=== PATIENT | male | born 1955 | race Caucasian/White ===

== ENCOUNTER 2022-06-23 14:38 | Inpatient (IN) | payer MEDICARE ==
[2022-06-23 15:37] LABS: Anisocytosis Slight; Basophils # (A) 0.1 k/uL (0-0.2); Basophils % (A) 1 %; Eosinophils # (A) 0.2 k/uL (0-0.7); Eosinophils % (A) 2 %; HCT 36.4 % (39.0-53.0); HGB 11.3 gm/dL (13.0-17.5); Hypochromasia Moderate; Lymphocytes # (A) 0.8 k/uL (1.0-4.8); Lymphocytes % (A) 7 %; MCH 33.1 pg (25.0-35.0); MCHC 31.1 g/dL (31.0-37.0); MCV 106.4 fL (80.0-100.0); Macrocytosis Moderate; Mean Platelet Volume 9.6; Monocytes # (A) 0.6 k/uL (0-1.0); Monocytes % (A) 6 %; Neutrophils # (A) 8.6 k/uL (1.3-7.7); Neutrophils % (A) 83 %; Platelet Count 181 k/uL (150-450); RBC 3.42 m/uL (4.30-5.90); WBC 10.4 k/uL (3.8-10.6)
[2022-06-23 15:50] LABS: INR 1.5 (<1.2); Partial Thromboplastin Time 23.7 sec (22.0-30.0); Prothrombin Time 15.1 sec (9.0-12.0)
[2022-06-23 15:55] LABS: Albumin 3.3 g/dL (3.5-5.0); Calcium 8.7 mg/dL (8.4-10.2); Total Bilirubin 1.3 mg/dL (0.2-1.3); Total Protein 6.9 g/dL (6.3-8.2)
[2022-06-23 15:56] LABS: Potassium 5.4 mmol/L (3.5-5.1)
--- NOTE | 2022-06-23 16:20 | XR ---
EXAMINATION TYPE: XR ribs RT DATE OF EXAM: 06/23/2022 CLINICAL HISTORY: Pain, Fall Four views of the ribs fail demonstrate evidence for displaced rib fracture or secondary sign of rib fracture. There is airspace consolidation right lung. No evidence for pneumothorax. Right-sided galls tones noted. IMPRESSION: 1. No displaced rib fractures seen. ICD 10 NO FRACTURE, INITIAL EVALUATION
--- NOTE | 2022-06-23 16:21 | XR ---
EXAMINATION TYPE: XR chest 2V DATE OF EXAM: 06/23/2022 COMPARISON: NONE HISTORY: Shortness of breath TECHNIQUE: Frontal and lateral views of the chest are obtained. FINDINGS: Scattered senescent parenchymal changes noted. Perihilar airspace disease with pulmonary venous congestion and cardiomegaly compatible with underlyi ng pulmonary edema. Correlate clinically. Mediastinal structures are stable and grossly unremarkable. No evidence for hilar prominence. Degenerative changes dorsal spine. IMPRESSION: 1. Perihilar airspace disease with pulmonary venous congestion and cardiomegaly compatible with under lying pulmonary edema. Correlate clinically.
--- NOTE | 2022-06-23 16:27 | ED ---
SOB HPI - General Chief Complaint: Shortness of Breath Stated Complaint: JOYCE Time Seen by Provider: 06/23/22 14:41 Source: patient, family, EMS, RN notes reviewed Mode of arrival: EMS Limitations: physical limitation - History of Present Illness Initial Comments: This is a 66-year-old male with a past medical history of myocardial infarction, CVA, CHF, a-fib, anemia, and hypertension, who presents to the emergency department for hypoxemia. Patient is currently at [facility] and has been there for 2 weeks recovering from a bout of cellulitis and a DVT in the right leg. Today, he had a sudden episode of oxygen desaturation around 78%. He has never been on oxygen before or had breathing problems. Patient is a daily smoker and smokes 4 cigarettes a day. When EMS brought him to the emergency department, he had been put on 4 L of oxygen via nasal cannula. He does have a [place] filter in place and takes Eliquis daily. Patient currently denying any chest pain, coughing, or upper respiratory symptoms. Denies any fevers, chills, sore throat, cough, chest pain, palpitations, abdominal pain, nausea, vomiting, diarrhea, back pain, or headaches. MD Complaint: shortness of breath Worsens With: lying flat Known History Of: congestive heart failure Treatments Prior to Arrival: oxygen - Related Data Home Oxygen Therapy: No Allergies Allergy/AdvReac Type Severity Reaction Status Date / Time lisinopril [From Zestril] Allergy Cough Verified 06/23/22 15:36 niacin Allergy Swelling Verified 06/23/22 15:38 [From Niaspan Extended-Release] Review of Systems ROS Statement: Those systems with pertinent positive or pertinent negative responses have been documented in the HPI. ROS Other: All systems not noted in ROS Statement are negative. Past Medical History Past Medical History: Heart Failure, Hyperlipidemia, Hypertension, Prostate Disorder Additional Past Medical History / Comment(s): CHF, stroke History of Any Multi-Drug Resistant Organisms: Unobtainable Additional Past Surgical History / Comment(s): Quadrupal bypass Past Psychological History: Unable to Obtain Smoking Status: Unknown if ever smoked Past Alcohol Use History: Unable to Obtain Past Drug Use History: Unable to Obtain General Exam Limitations: physical limitation General appearance: alert Head exam: Present: atraumatic, normocephalic, normal inspection Respiratory exam: Present: respiratory distress, wheezes, rhonchi, other (Large area of ecchymosis over the right chest wall with minor overlying tenderness) Cardiovascular Exam: Present: regular rate, irregular rhythm Extremities exam: Present: other (3+ pitting edema in the right lower extremity with venous stasis changes.) Neurological exam: Present: alert Psychiatric exam: Present: normal affect, normal mood Skin exam: Present: warm, dry, intact, normal color. Absent: rash Course Vital Signs 06/23/22 06/23/22 06/23/22 14:41 14:45 17:04 Temperature 97.7 F Pulse Rate 80 92 Respiratory 24 26 H 26 H Rate Blood Pressure 103/73 108/72 O2 Sat by Pulse 80 L 100 Oximetry Medical Decision Making - Medical Decision Making This is a 66-year-old male who presents to the emergency department for difficulty breathing and hypoxemia. Lab work reveals an elevated d-dimer, troponin, and lactic acid. Additionally, he has poor kidney function and elev ated liver enzymes. These findings were discussed with his family, who states that he does have chronic kidney problems and is awaiting an appointment with nephrology in August. They are not aware of any problems related to his liver, they state that he used to drink a lot of alcohol prior to his stroke 16 years ago, but has not had any regular alcohol intake since then. With the [place] filter and the patient being on Eliquis it makes it less likely for him to acquire a severe pulmonary embolus, however this cannot be ruled out. Due to his poor kidney function, a CTA will not be obtained in the emergency department. A VQ scan can be considered by the admitting team if they feel it is appropriate. Chest x-ray obtained revealing pulmonary venous congestion and cardiomegaly. I did obtain an x-ray of the ribs on the right side, as the patient has a very large area of ecchymosis with associated tenderness on palpation. This did not reveal any rib fractures, however it did identify gallstones. BNP is elevated at 30,100. The hypoxemia is most likely related to the CHF exacerbation. Patient given 40 mg of Lasix IV in the emergency department. Patient will be admitted to medicine for further management. This case was discussed in detail with the attending ED physician. Presentation, findings, and treatment plan discussed in detail as well. - Lab Data Result diagrams: 06/23/22 15:15 06/23/22 15:15 Lab Results 06/23/22 06/23/22 06/23/22 Range/Units 15:15 15:15 15:15 WBC 10.4 (3.8-10.6) k/uL RBC 3.42 L (4.30-5.90) m/uL Hgb 11.3 L (13.0-17.5) gm/dL Hct 36.4 L (39.0-53.0) % MCV 106.4 H (80.0-100.0) fL MCH 33.1 (25.0-35.0) pg MCHC 31.1 (31.0-37.0) g/dL RDW 16.0 H (11.5-15.5) % Plt Count 181 (150-450) k/uL MPV 9.6 Neutrophils % 83 % Lymphocytes % 7 % Monocytes % 6 % Eosinophils % 2 % Basophils % 1 % Neutrophils # 8.6 H (1.3-7.7) k/uL Lymphocytes # 0.8 L (1.0-4.8) k/uL Monocytes # 0.6 (0-1.0) k/uL Eosinophils # 0.2 (0-0.7) k/uL Basophils # 0.1 (0-0.2) k/uL Hypochromasia Moderate Anisocytosis Slight Macrocytosis Moderate PT 15.1 H (9.0-12.0) sec INR 1.5 H (<1.2) APTT 23.7 (22.0-30.0) sec D-Dimer 2.86 H (<0.60) mg/L FEU Sodium 139 (137-145) mmol/L Potassium 5.4 H (3.5-5.1) mmol/L Chloride 104 (98-107) mmol/L Carbon Dioxide 20 L (22-30) mmol/L Anion Gap 15 mmol/L BUN 63 H (9-20) mg/dL Creatinine 1.99 H (0.66-1.25) mg/dL Est GFR (CKD-EPI)AfAm 39 (>60 ml/min/1.73 sqM) Est GFR (CKD-EPI)NonAf 34 (>60 ml/min/1.73 sqM) Glucose 111 H (74-99) mg/dL Plasma Lactic Acid Sonido (0.7-2.0) mmol/L Calcium 8.7 (8.4-10.2) mg/dL Total Bilirubin 1.3 (0.2-1.3) mg/dL AST 256 H (17-59) U/L ALT 64 H (4-49) U/L Alkaline Phosphatase 140 H (38-126) U/L Troponin I (0.000-0.034) ng/mL NT-Pro-B Natriuret Pep pg/mL Total Protein 6.9 (6.3-8.2) g/dL Albumin 3.3 L (3.5-5.0) g/dL Coronavirus (PCR) (Not Detectd) 06/23/22 06/23/22 06/23/22 Range/Units 15:15 15:15 15:15 WBC (3.8-10.6) k/uL RBC (4.30-5.90) m/uL Hgb (13.0-17.5) gm/dL Hct (39.0-53.0) % MCV (80.0-100.0) fL MCH (25.0-35.0) pg MCHC (31.0-37.0) g/dL RDW (11.5-15.5) % Plt Count (150-450) k/uL MPV Neutrophils % % Lymphocytes % % Monocytes % % Eosinophils % % Basophils % % Neutrophils # (1.3-7.7) k/uL Lymphocytes # (1.0-4.8) k/uL Monocytes # (0-1.0) k/uL Eosinophils # (0-0.7) k/uL Basophils # (0-0.2) k/uL Hypochromasia Anisocytosis Macrocytosis PT (9.0-12.0) sec INR (<1.2) APTT (22.0-30.0) sec D-Dimer (<0.60) mg/L FEU Sodium (137-145) mmol/L Potassium (3.5-5.1) mmol/L Chloride (98-107) mmol/L Carbon Dioxide (22-30) mmol/L Anion Gap mmol/L BUN (9-20) mg/dL Creatinine (0.66-1.25) mg/dL Est GFR (CKD-EPI)AfAm (>60 ml/min/1.73 sqM) Est GFR (CKD-EPI)NonAf (>60 ml/min/1.73 sqM) Glucose (74-99) mg/dL Plasma Lactic Acid Sonido 3.0 H* (0.7-2.0) mmol/L Calcium (8.4-10.2) mg/dL Total Bilirubin (0.2-1.3) mg/dL AST (17-59) U/L ALT (4-49) U/L Alkaline Phosphatase (38-126) U/L Troponin I 0.041 H* (0.000-0.034) ng/mL NT-Pro-B Natriuret Pep 80408 pg/mL Total Protein (6.3-8.2) g/dL Albumin (3.5-5.0) g/dL Coronavirus (PCR) (Not Detectd) 06/23/22 Range/Units 15:15 WBC (3.8-10.6) k/uL RBC (4.30-5.90) m/uL Hgb (13.0-17.5) gm/dL Hct (39.0-53.0) % MCV (80.0-100.0) fL MCH (25.0-35.0) pg MCHC (31.0-37.0) g/dL RDW (11.5-15.5) % Plt Count (150-450) k/uL MPV Neutrophils % % Lymphocytes % % Monocytes % % Eosinophils % % Basophils % % Neutrophils # (1.3-7.7) k/uL Lymphocytes # (1.0-4.8) k/uL Monocytes # (0-1.0) k/uL Eosinophils # (0-0.7) k/uL Basophils # (0-0.2) k/uL Hypochromasia Anisocytosis Macrocytosis PT (9.0-12.0) sec INR (<1.2) APTT (22.0-30.0) sec D-Dimer (<0.60) mg/L FEU Sodium (137-145) mmol/L Potassium (3.5-5.1) mmol/L Chloride (98-107) mmol/L Carbon Dioxide (22-30) mmol/L Anion Gap mmol/L BUN (9-20) mg/dL Creatinine (0.66-1.25) mg/dL Est GFR (CKD-EPI)AfAm (>60 ml/min/1.73 sqM) Est GFR (CKD-EPI)NonAf (>60 ml/min/1.73 sqM) Glucose (74-99) mg/dL Plasma Lactic Acid Sonido (0.7-2.0) mmol/L Calcium (8.4-10.2) mg/dL Total Bilirubin (0.2-1.3) mg/dL AST (17-59) U/L ALT (4-49) U/L Alkaline Phosphatase (38-126) U/L Troponin I (0.000-0.034) ng/mL NT-Pro-B Natriuret Pep pg/mL Total Protein (6.3-8.2) g/dL Albumin (3.5-5.0) g/dL Coronavirus (PCR) Not Detected (Not Detectd) - Radiology Data Radiology results: report reviewed, image reviewed Disposition Clinical Impression: Acute exacerbation of CHF (congestive heart failure), Hypoxemia Disposition: ADMITTED IP TO THIS [facility] Referrals: William Cleveland DO [Primary Care Provider] - 1-2 days
[2022-06-23] MEDS ORDERED: FUROSEMIDE 10 MG/ML 4 ML VIAL IV STA (16:41)
[2022-06-23] MEDS ORDERED: NALOXONE 0.4 MG/ML 1 ML VIAL IV PRN (17:00)
[2022-06-23] MEDS ORDERED: ONDANSETRON 4 MG/2 ML VIAL IVP PRN (17:00)
--- NOTE | 2022-06-23 18:48 | P.HPIM ---
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 Patient is aphasic and currently lethargic so history was taken from the at bedside. states that 3 days ago his breathing has been worsening and today his pulse ox was down to the 70s. states that patient was recently admitted to [facility] and was treated for cellulitis. She states that he has completed his antibiotic course for cellulitis at the custodial facility. states that she has talked to her kids about hospice. She states that her children did not like the idea of turning off the defibrillator if he goes into hospice. In the ED patient was 80% on room air. Patient placed on 3 L nasal cannula and is now satting well. Patient was found to have potassium 5.4, creatinine 1.99, lactic acid 3.0, troponin 0.041, BNP greater than 30,000 and elevated LFTs. Chest x-ray showed cardiomegaly and vascular congestion. Patient is unable to answer yes and no questions. He is denying any chest pain or abdominal pain or fever or chills. at bedside states that his cellulitis is much better. Review of Systems 10 ROS reviewed and are negative except as noted in HPI Past Medical History Past Medical History: Heart Failure, Hyperlipidemia, Hypertension, Prostate Disorder Additional Past Medical History / Comment(s): CHF, stroke History of Any Multi-Drug Resistant Organisms: Unobtainable Additional Past Surgical History / Comment(s): Quadrupal bypass Past Psychological History: Unable to Obtain Smoking Status: Unknown if ever smoked Past Alcohol Use History: Unable to Obtain Past Drug Use History: Unable to Obtain Medications and Allergies Home Medications Medication Instructions Recorded Confirmed Type Acetaminophen Tab [Tylenol] 650 mg PO Q6H PRN 06/23/22 06/23/22 History Apixaban [Eliquis] 2.5 mg PO BID 06/23/22 06/23/22 History Aspirin EC [Ecotrin Low Dose] 81 mg PO DAILY 06/23/22 06/23/22 History Balsalazide Disodium 750 mg PO TID@0700,1300,1900 06/23/22 06/23/22 History Furosemide [Lasix] 40 mg PO DAILY 06/23/22 06/23/22 History Mexiletine [Mexitil] 200 mg PO TID@0700,1300,1900 06/23/22 06/23/22 History Potassium Chloride ER [K-Dur 20] 20 meq PO DAILY 06/23/22 06/23/22 History Tamsulosin [Flomax] 0.4 mg PO DAILY 06/23/22 06/23/22 History allopurinoL [Zyloprim] 100 mg PO DAILY 06/23/22 06/23/22 History carvediloL [Coreg] 6.25 mg PO BID 06/23/22 06/23/22 History traMADol HCL 50 mg PO BID@0700,1900 06/23/22 06/23/22 History traZODone HCL [Desyrel] 50 mg PO HS 06/23/22 06/23/22 History Allergies Allergy/AdvReac Type Severity Reaction Status Date / Time lisinopril [From Zestril] Allergy Cough Verified 06/23/22 17:29 niacin Allergy Swelling Verified 06/23/22 17:29 [From Niaspan Extended-Release] Physical Exam Osteopathic Statement: *. No significant issues noted on an osteopathic structural exam other than those noted in the History and Physical/Consult. Vitals: Vital Signs Temp Pulse Resp BP Pulse Ox 06/23/22 17:04 92 26 H 108/72 100 06/23/22 14:45 26 H 06/23/22 14:41 97.7 F 80 24 103/73 80 L Intake and Output 06/23/22 06/23/22 06/23/22 06:59 14:59 22:59 Other: Weight 111.13 kg General: [Appears chronically debilitated, mild respiratory distress]. Eye: [PERRL, EOMI, normal conjunctiva]. HENT: [Normocephalic, clear tympanic membranes, normal hearing, dry oral mucosa, no scleral icterus, no sinus tenderness]. Neck: [Supple, non-tender, no carotid bruits, no JVD, no lymphadenopathy]. Lungs: [Crackles in bilateral lower lungs]. Heart: [Normal rate, regular rhythm, +2 pitting edema bilateral lower extre mities]. Abdomen: [Soft, non-tender, non-distended, normal bowel sounds, no masses]. Musculoskeletal: [Normal range of motion and strength, no tenderness or swelling]. Neurologic: [Right-sided weakness, CN II-XII intact]. Psychiatric: [Lethargic and drowsy]. Results CBC & Chem 7: 06/23/22 15:15 06/23/22 15:15 Labs: Abnormal Lab Results - Last 24 Hours (Table) 06/23/22 06/23/22 06/23/22 Range/Units 15:15 15:15 15:15 RBC 3.42 L (4.30-5.90) m/uL Hgb 11.3 L (13.0-17.5) gm/dL Hct 36.4 L (39.0-53.0) % MCV 106.4 H (80.0-100.0) fL RDW 16.0 H (11.5-15.5) % Neutrophils # 8.6 H (1.3-7.7) k/uL Lymphocytes # 0.8 L (1.0-4.8) k/uL PT 15.1 H (9.0-12.0) sec INR 1.5 H (<1.2) D-Dimer 2.86 H (<0.60) mg/L FEU Potassium 5.4 H (3.5-5.1) mmol/L Carbon Dioxide 20 L (22-30) mmol/L BUN 63 H (9-20) mg/dL Creatinine 1.99 H (0.66-1.25) mg/dL Glucose 111 H (74-99) mg/dL Plasma Lactic Acid Sonido (0.7-2.0) mmol/L AST 256 H (17-59) U/L ALT 64 H (4-49) U/L Alkaline Phosphatase 140 H (38-126) U/L Troponin I (0.000-0.034) ng/mL Albumin 3.3 L (3.5-5.0) g/dL 06/23/22 06/23/22 Range/Units 15:15 15:15 RBC (4.30-5.90) m/uL Hgb (13.0-17.5) gm/dL Hct (39.0-53.0) % MCV (80.0-100.0) fL RDW (11.5-15.5) % Neutrophils # (1.3-7.7) k/uL Lymphocytes # (1.0-4.8) k/uL PT (9.0-12.0) sec INR (<1.2) D-Dimer (<0.60) mg/L FEU Potassium (3.5-5.1) mmol/L Carbon Dioxide (22-30) mmol/L BUN (9-20) mg/dL Creatinine (0.66-1.25) mg/dL Glucose (74-99) mg/dL Plasma Lactic Acid Sonido 3.0 H* (0.7-2.0) mmol/L AST (17-59) U/L ALT (4-49) U/L Alkaline Phosphatase (38-126) U/L Troponin I 0.041 H* (0.000-0.034) ng/mL Albumin (3.5-5.0) g/dL Assessment and Plan Assessment: Acute on chronic systolic heart failure status post ICD Acute hypoxic respiratory failure We will start the patient on IV Lasix 40 mg twice a day Consult cardiology and nephrology Check echocardiogram Per patient's primary doormaker discontinued Entrusto likely due to renal failure Resume Coreg Daily weights and strict I's and O's Wean O2 as tolerated Acute kidney injury likely on CK D Unknown creatinine baseline Consult nephrology Monitor creatinine closely while on IV diuretics Mild hyperkalemia likely due to renal failure Continue with diuretics Elevated lactic acid likely due to hypoxia Patient has no fever or leukocytosis so unlikely due to sepsis Elevated troponin secondary to renal failure and heart failure Patient denies any chest pains unlikely ACS Trend troponins Elevated LFTs likely due to hepatic congestion Continue to trend CBC Check right upper quadrant ultrasound X-ray did show gallstone however patient denies any abdominal pain Recurrent DVT with IVC filter Elevated d-dimer likely due to recent DVT Resume Eliquis A. fib with RVR Resume Eliquis and mexiletine BPH Resume tamsulosin Hyperlipidemia Resume statin Coronary artery disease status post CABG Resume aspirin and statin History of gout Resume allopurinol History of multiple strokes Resume aspirin and statin DNR/DNI DVT prophylaxis: eliquis
[2022-06-23] MEDS: carvediloL 6.25 MG TAB PO SCH (18:57)
[2022-06-23 19:32] LABS: Appearance,Urine Clear (Clear); Bilirubin,Urine Negative (Negative); Blood,Urine Negative (Negative); Color,Urine Yellow; Glucose,Urine (UA) Negative (Negative); Ketones,Urine Negative (Negative); Leukocyte Esterase,Urine Negative (Negative); Nitrite,Urine Negative (Negative); Protein,Urine Negative (Negative); Specific Gravity,Urine 1.014 (1.001-1.035); Urobilinogen,Urine <2.0 mg/dL (<2.0)
[2022-06-23] MEDS: ATORVASTATIN 40 MG TAB PO SCH (20:38)
[2022-06-23] MEDS: BALSALAZIDE DISODIUM 750 MG CAPSULE PO SCH (20:38)
[2022-06-23] MEDS: MEXILETINE 200 MG CAP PO SCH (20:38)
[2022-06-23] MEDS: APIXABAN 5 MG TAB PO SCH (20:38)
[2022-06-23] MEDS ORDERED: MORPHINE SULFATE 2 MG/ML SYRINGE IVP STA (23:14)
[2022-06-24] MEDS ORDERED: FUROSEMIDE 10 MG/ML 2 ML VIAL IV SCH (06:00)
[2022-06-24] MEDS: MEXILETINE 200 MG CAP PO SCH ×3 (06:26→17:27)
[2022-06-24] MEDS: carvediloL 6.25 MG TAB PO SCH ×2 (06:26→16:28)
[2022-06-24] MEDS: BALSALAZIDE DISODIUM 750 MG CAPSULE PO SCH ×3 (06:26→17:27)
[2022-06-24] MEDS: APIXABAN 5 MG TAB PO SCH ×2 (08:46→20:45)
[2022-06-24] MEDS: allopurinoL 100 MG TAB PO SCH (08:46)
[2022-06-24] MEDS: ASPIRIN 81 MG PO SCH (08:46)
[2022-06-24] MEDS: TAMSULOSIN 0.4 MG CAP.ER.24H PO SCH (08:46)
--- NOTE | 2022-06-24 10:11 | US ---
EXAMINATION TYPE: US abdomen limited DATE OF EXAM: 06/24/2022 COMPARISON: NONE CLINICAL HISTORY: elevated LFTs. TECHNIQUE: Multiple sonographic images of the right upper quadrant are obtained. 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 Technically difficult with very limited visuali zation of organs, difficult to get images without motion. Pancreas: Obscured by bowel gas, hypoechoic area inferior, not peristalsing of ?etiology Liver: very limited visualization, no obvious mass, but due to limitations evaluation is minimal Gallbladder: cholelithiasis, minimal visualization Evidence for sonographic Bo's sign: No CBD: not seen Right Kidney: not seen IMPRESSION: 1. Limited examination. 2. Cholelithiasis. 3. Probable bowel adjacent to the pancreas.
--- NOTE | 2022-06-24 10:48 | P.NPCON ---
History of Present Illness - Reason for Consult acute renal failure - History of Present Illness Reason for admission: Acute kidney injury History of present illness: Patient is a 66-year-old male seen in renal consultation for acute kidney injury. Patient's creatinine on admission yesterday was 1.99. Unknown baseline renal function. Patient's is present at bedside. She states the patient was recently admitted for blood clot in his lower extremities at [facility] and then went to rehab to sleep. He has been at the rehab facility for about 2 weeks now. Last few days patient has been getting progressively more short of breath and was hypoxic. According to his , his oxygen saturation was in the 70s. He was subsequently sent to the hospital. Chest x-ray suggestive of fluid overload. He is currently receiving IV Lasix. He has an external catheter. No history of diabetes. Oral intake has been poor the last few days. Blood pressure has been in the systolic 90s to 100s. Afebrile. Patient is resting in bed and is quite lethargic. He is not answering verbal questions at this time. Vital signs are stable. General: Resting in bed. HEENT: Head exam is unremarkable. On nasal cannula. LUNGS: Breath sounds decreased. HEART: Rate and Rhythm are regular. ABDOMEN: Soft, no distention. EXTREMITITES: 1+ edema. Past Medical History Past Medical History: Heart Failure, Hyperlipidemia, Hypertension, Liver Disease, Prostate Disorder, Renal Disease Additional Past Medical History / Comment(s): CHF, stroke History of Any Multi-Drug Resistant Organisms: None Reported Additional Past Surgical History / Comment(s): Quadrupal bypass Past Anesthesia/Blood Transfusion Reactions: No Reported Reaction Past Psychological History: Unable to Obtain Smoking Status: Unknown if ever smoked Past Alcohol Use History: Unable to Obtain Past Drug Use History: Unable to Obtain Medications and Allergies Home Medications Medication Instructions Recorded Confirmed Type Acetaminophen Tab [Tylenol] 650 mg PO Q6H PRN 06/23/22 06/23/22 History Apixaban [Eliquis] 2.5 mg PO BID 06/23/22 06/23/22 History Aspirin EC [Ecotrin Low Dose] 81 mg PO DAILY 06/23/22 06/23/22 History Balsalazide Disodium 750 mg PO TID@0700,1300,1900 06/23/22 06/23/22 History Furosemide [Lasix] 40 mg PO DAILY 06/23/22 06/23/22 History Mexiletine [Mexitil] 200 mg PO TID@0700,1300,1900 06/23/22 06/23/22 History Potassium Chloride ER [K-Dur 20] 20 meq PO DAILY 06/23/22 06/23/22 History Tamsulosin [Flomax] 0.4 mg PO DAILY 06/23/22 06/23/22 History allopurinoL [Zyloprim] 100 mg PO DAILY 06/23/22 06/23/22 History carvediloL [Coreg] 6.25 mg PO BID 06/23/22 06/23/22 History traMADol HCL 50 mg PO BID@0700,1900 06/23/22 06/23/22 History traZODone HCL [Desyrel] 50 mg PO HS 06/23/22 06/23/22 History Allergies Allergy/AdvReac Type Severity Reaction Status Date / Time lisinopril [From Zestril] Allergy Cough Verified 06/23/22 17:29 niacin Allergy Swelling Verified 06/23/22 17:29 [From Niaspan Extended-Release] Physical Exam Vitals: Vital Signs Temp Pulse Pulse Resp BP BP Pulse Ox 06/24/22 08:23 95 06/24/22 08:00 111 H 18 109/67 96 06/24/22 04:00 95 22 107/43 95 06/23/22 23:38 98.0 F 85 21 92/66 100 06/23/22 20:33 98.1 F 98 19 109/67 99 06/23/22 19:43 97.2 F L 93 24 116/78 99 06/23/22 17:04 92 26 H 108/72 100 06/23/22 14:45 26 H 06/23/22 14:41 97.7 F 80 24 103/73 80 L Intake and Output 06/23/22 06/24/22 06/24/22 22:59 06:59 14:59 Other: Voiding Method External Catheter External Catheter # Voids 1 # Bowel Movements 1 Weight 111.13 kg 108.5 kg Results - Lab Results Most recent lab results Calcium 8.7 mg/dL (8.4-10.2) 06/23/22 15:15 06/23/22 15:15 06/23/22 15:15 Assessment and Plan Plan: Assessment: 1. Acute kidney injury secondary to ATN secondary to cardiorenal syndrome. Creatinine 1.99 on admission. Rule out retention and obstructive uropathy. Unknown baseline renal function. UA benign. 2. Volume overload. 3. CHF. Unknown ejection fraction. 4. Metabolic acidosis secondary to acute kidney injury. 5. Acute hypoxic respiratory failure. Plan: Increase Lasix to 40 mg IV twice daily. Check renal ultrasound. Check bladder scan to rule out urinary retention. Strict I's and O's. Avoid nephrotoxins. Follow-up echocardiogram. Continue to monitor renal function and urine output. Thank you for the consultation. I will continue to follow the patient with you during his hospital stay.
--- NOTE | 2022-06-24 12:46 | P.PN ---
Subjective Progress Note Date: 06/24/22 Patient's is in the room. This morning patient's breathing is about the same as yesterday. His urine output has not been recorded. However patient did loose 2 kg since admission. I discussed the case with the joy loading machine operator. Patient's Lasix was increased to 40 mg twice a day Objective - Vital Signs Vital signs: Vital Signs Temp 98.0 F 06/23/22 23:38 Pulse 111 H 06/24/22 08:00 Resp 18 06/24/22 08:00 BP 109/67 06/24/22 08:00 Pulse Ox 95 06/24/22 08:23 FiO2 Intake & Output 06/23/22 06/24/22 06/24/22 18:59 06:59 18:59 Weight 111.13 kg 108.5 kg Other: Voiding Method External Catheter External Catheter # Voids 1 # Bowel Movements 1 - Exam General examination - Alert and Oriented 3 in [id number] respiratory distress Heart - + S1S2 no murmurs Lungs - bilateral lower lung crackles Abdomen soft NT ND +ve BS Extremities - +2 pitting edema bilateral lower extremities 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 - residual right-sided weakness, and aphasia Psych - appears lethargic and somnolent - Labs CBC & Chem 7: 06/23/22 15:15 06/23/22 15:15 Labs: Abnormal Lab Results - Last 24 Hours (Table) 06/23/22 06/23/22 06/23/22 Range/Units 15:15 15:15 15:15 RBC 3.42 L (4.30-5.90) m/uL Hgb 11.3 L (13.0-17.5) gm/dL Hct 36.4 L (39.0-53.0) % MCV 106.4 H (80.0-100.0) fL RDW 16.0 H (11.5-15.5) % Neutrophils # 8.6 H (1.3-7.7) k/uL Lymphocytes # 0.8 L (1.0-4.8) k/uL PT 15.1 H (9.0-12.0) sec INR 1.5 H (<1.2) D-Dimer 2.86 H (<0.60) mg/L FEU Potassium 5.4 H (3.5-5.1) mmol/L Carbon Dioxide 20 L (22-30) mmol/L BUN 63 H (9-20) mg/dL Creatinine 1.99 H (0.66-1.25) mg/dL Glucose 111 H (74-99) mg/dL Plasma Lactic Acid Sonido (0.7-2.0) mmol/L AST 256 H (17-59) U/L ALT 64 H (4-49) U/L Alkaline Phosphatase 140 H (38-126) U/L Troponin I (0.000-0.034) ng/mL Albumin 3.3 L (3.5-5.0) g/dL 06/23/22 06/23/22 06/23/22 Range/Units 15:15 15:15 18:35 RBC (4.30-5.90) m/uL Hgb (13.0-17.5) gm/dL Hct (39.0-53.0) % MCV (80.0-100.0) fL RDW (11.5-15.5) % Neutrophils # (1.3-7.7) k/uL Lymphocytes # (1.0-4.8) k/uL PT (9.0-12.0) sec INR (<1.2) D-Dimer (<0.60) mg/L FEU Potassium (3.5-5.1) mmol/L Carbon Dioxide (22-30) mmol/L BUN (9-20) mg/dL Creatinine (0.66-1.25) mg/dL Glucose (74-99) mg/dL Plasma Lactic Acid Sonido 3.0 H* (0.7-2.0) mmol/L AST (17-59) U/L ALT (4-49) U/L Alkaline Phosphatase (38-126) U/L Troponin I 0.041 H* 0.039 H* (0.000-0.034) ng/mL Albumin (3.5-5.0) g/dL 06/23/22 Range/Units 21:39 RBC (4.30-5.90) m/uL Hgb (13.0-17.5) gm/dL Hct (39.0-53.0) % MCV (80.0-100.0) fL RDW (11.5-15.5) % Neutrophils # (1.3-7.7) k/uL Lymphocytes # (1.0-4.8) k/uL PT (9.0-12.0) sec INR (<1.2) D-Dimer (<0.60) mg/L FEU Potassium (3.5-5.1) mmol/L Carbon Dioxide (22-30) mmol/L BUN (9-20) mg/dL Creatinine (0.66-1.25) mg/dL Glucose (74-99) mg/dL Plasma Lactic Acid Sonido (0.7-2.0) mmol/L AST (17-59) U/L ALT (4-49) U/L Alkaline Phosphatase (38-126) U/L Troponin I 0.035 H* (0.000-0.034) ng/mL Albumin (3.5-5.0) g/dL Assessment and Plan Assessment: Acute on chronic systolic heart failure status post ICD Acute hypoxic respiratory failure IV Lasix increased to 40 mg twice a day Consult cardiology and nephrology Patient had a recent echocardiogram done on May 2022 at [facility] that showed an EF of 40% Check echocardiogram on this admission Per patient's primary facilities engineer discontinued Entrusto likely due to renal failure Resume Coreg Daily weights and strict I's and O's Wean O2 as tolerated Acute kidney injury likely on CK D I reviewed records from [facility]. Patient is an creatinine is around 2.0. On admission he was at his baseline Nephrology on board Monitor creatinine closely while on IV diuretics A.m. labs pending Mild hyperkalemia likely due to renal failure Continue with diuretics A.m. labs pending Elevated lactic acid likely due to hypoxia Patient has no fever or leukocytosis so unlikely due to sepsis Elevated troponin secondary to renal failure and heart failure Patient denies any chest pains unlikely ACS Trend troponins Elevated LFTs likely due to hepatic congestion Continue to trend CBC Check right upper quadrant ultrasound X-ray did show gallstone however patient denies any abdominal pain Recurrent DVT with IVC filter Elevated d-dimer likely due to recent DVT Resume Eliquis A. fib with RVR Resume Eliquis and mexiletine BPH Resume tamsulosin Hyperlipidemia Resume statin Coronary artery disease status post CABG Resume aspirin and statin History of gout Resume allopurinol History of multiple strokes Resume aspirin and statin DNR/DNI DVT prophylaxis: lawrence
--- NOTE | 2022-06-24 13:11 | P.CRDCN ---
History of Present Illness Consult date: 06/24/22 History of present illness: History of Present Illness: The patient is a 66-year-old male, status post CABG in 1997, chronic persistent atrial fibrillation, post ICD implantation, prior history of stroke, aphasic who was recently discharged from the hospital with cellulitis and DVT. He presents with symptoms of dyspnea, hypoxemia. The patient is aphasic. The history is obtained from the . The patient has prior myocardial infarction and CABG, followed at [facility]. He has a history of atrial fibrillation in addition to permanent pacemaker implantation and ICD. According to the he had no further ischemic event but he has a prior history of CHF. He is very limited in his physical activity. He had recent peripheral edema but according to the better now. He has no clear PND nor orthopnea. There is no recent history of acute coronary syndrome. Evaluation of his systolic function in the past is not available. Medications: Mexiletine 200 mg 3 times a day, Lasix 40 mg daily, Coreg 6.5 mg twice a day, aspirin once a day, Eliquis 2.5 mg twice a day Review of Systems: Obtained from the Respiratory: Has a history of dyspnea on exertion GI: No nausea or vomiting . No history of peptic ulcer disease. No recent GI bleed. : No hematuria or dysuria. Nervous System: Prior 2 strokes, seizure. Physical Examination: 66-year-old male, alert a phasic with right-sided weakness ,Blood pressure 109/60, Heart rate 90 Head: Normocephalic. Eyes: Sclerae nonicteric. Neck: Good carotid upstroke, no bruit, no jugular venous distention. Lungs: Clear to auscultation. Heart: Irregular rate and rhythm, S1-S2, no S3, no rub. Systolic ejection murm ur. Abdomen: Soft nontender, positive bowel sounds no organomegaly. Extremities: +1 edema, intact distal pulses. Labs: Hemoglobin 11.3, potassium 5.4, BUN 63, creatinine 1.99. Troponin 0.04, 0.03, 0.03. NT proBNP 30,100. Chest x-ray was pulmonary congestion EKG: Atrial fibrillation with nonspecific ST-T wave changes Impression: 1. Exacerbation of CHF with history of systolic heart failure 2. Prior history of stroke and aphasia 3. Atrial fibrillation 4. Chronic kidney disease 5. History of hypertension 6. Prior history of cellulitis Plan: 1. Obtain an echocardiogram with Doppler 2. Follow renal functions 3. IV diuresis for 24 hours 4. 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 Depending on his progress further recommendations will be made. Thank you for this consult we will follow with you. Past Medical History Past Medical History: Heart Failure, Hyperlipidemia, Hypertension, Liver Disease, Prostate Disorder, Renal Disease Additional Past Medical History / Comment(s): CHF, stroke History of Any Multi-Drug Resistant Organisms: None Reported Additional Past Surgical History / Comment(s): Quadrupal bypass Past Anesthesia/Blood Transfusion Reactions: No Reported Reaction Past Psychological History: Unable to Obtain Smoking Status: Unknown if ever smoked Past Alcohol Use History: Unable to Obtain Past Drug Use History: Unable to Obtain Medications and Allergies Home Medications Medication Instructions Recorded Confirmed Type Acetaminophen Tab [Tylenol] 650 mg PO Q6H PRN 06/23/22 06/23/22 History Apixaban [Eliquis] 2.5 mg PO BID 06/23/22 06/23/22 History Aspirin EC [Ecotrin Low Dose] 81 mg PO DAILY 06/23/22 06/23/22 History Balsalazide Disodium 750 mg PO TID@0700,1300,1900 06/23/22 06/23/22 History Furosemide [Lasix] 40 mg PO DAILY 06/23/22 06/23/22 History Mexiletine [Mexitil] 200 mg PO TID@0700,1300,1900 06/23/22 06/23/22 History Potassium Chloride ER [K-Dur 20] 20 meq PO DAILY 06/23/22 06/23/22 History Tamsulosin [Flomax] 0.4 mg PO DAILY 06/23/22 06/23/22 History allopurinoL [Zyloprim] 100 mg PO DAILY 06/23/22 06/23/22 History carvediloL [Coreg] 6.25 mg PO BID 06/23/22 06/23/22 History traMADol HCL 50 mg PO BID@0700,1900 06/23/22 06/23/22 History traZODone HCL [Desyrel] 50 mg PO HS 06/23/22 06/23/22 History Allergies Allergy/AdvReac Type Severity Reaction Status Date / Time lisinopril [From Zestril] Allergy Cough Verified 06/23/22 17:29 niacin Allergy Swelling Verified 06/23/22 17:29 [From Niaspan Extended-Release] Physical Exam Vitals: Vital Signs Temp Pulse Pulse Resp BP BP Pulse Ox 06/24/22 08:23 95 06/24/22 08:00 111 H 18 109/67 96 06/24/22 04:00 95 22 107/43 95 06/23/22 23:38 98.0 F 85 21 92/66 100 06/23/22 20:33 98.1 F 98 19 109/67 99 06/23/22 19:43 97.2 F L 93 24 116/78 99 06/23/22 17:04 92 26 H 108/72 100 06/23/22 14:45 26 H 06/23/22 14:41 97.7 F 80 24 103/73 80 L Intake and Output 06/23/22 06/24/22 06/24/22 22:59 06:59 14:59 Other: Voiding Method External Catheter External Catheter External Catheter # Voids 1 # Bowel Movements 1 Weight 111.13 kg 108.5 kg Results 06/23/22 15:15 06/23/22 15:15 Cardiac Enzymes 06/23/22 06/23/22 06/23/22 Range/Units 15:15 15:15 18:35 AST 256 H (17-59) U/L Troponin I 0.041 H* 0.039 H* (0.000-0.034) ng/mL 06/23/22 Range/Units 21:39 AST (17-59) U/L Troponin I 0.035 H* (0.000-0.034) ng/mL Coagulation 06/23/22 Range/Units 15:15 PT 15.1 H (9.0-12.0) sec APTT 23.7 (22.0-30.0) sec CBC 06/23/22 Range/Units 15:15 WBC 10.4 (3.8-10.6) k/uL RBC 3.42 L (4.30-5.90) m/uL Hgb 11.3 L (13.0-17.5) gm/dL Hct 36.4 L (39.0-53.0) % Plt Count 181 (150-450) k/uL Comprehensive Metabolic Panel 06/23/22 Range/Units 15:15 Sodium 139 (137-145) mmol/L Potassium 5.4 H (3.5-5.1) mmol/L Chloride 104 (98-107) mmol/L Carbon Dioxide 20 L (22-30) mmol/L BUN 63 H (9-20) mg/dL Creatinine 1.99 H (0.66-1.25) mg/dL Glucose 111 H (74-99) mg/dL Calcium 8.7 (8.4-10.2) mg/dL AST 256 H (17-59) U/L ALT 64 H (4-49) U/L Alkaline Phosphatase 140 H (38-126) U/L Total Protein 6.9 (6.3-8.2) g/dL Albumin 3.3 L (3.5-5.0) g/dL Current Medications Generic Name Dose Route Start Last Admin Trade Name Freq PRN Reason Stop Dose Admin Allopurinol 100 mg 06/24/22 09:00 06/24/22 08:46 Allopurinol 100 Mg Tab PO 100 mg DAILY EVANS Administration Apixaban 5 mg 06/23/22 21:00 06/24/22 08:46 Apixaban 5 Mg Tab PO 5 mg BID EVANS Administration Protocol Aspirin 81 mg 06/24/22 09:00 06/24/22 08:46 Aspirin 81 Mg PO 81 mg DAILY EVANS Administration Atorvastatin Calcium 40 mg 06/23/22 21:00 06/23/22 20:38 Atorvastatin 40 Mg Tab PO 40 mg HS EVANS Administration Balsalazide 750 mg 06/23/22 19:00 06/24/22 06:26 Balsalazide Disodium 750 Mg Capsule PO 750 mg TID@0700,1300,1900 EVANS Administration Carvedilol 6.25 mg 06/23/22 19:00 06/24/22 06:26 Carvedilol 6.25 Mg Tab PO 6.25 mg BID-W/MEALS EVANS Administration Furosemide 40 mg 06/24/22 18:00 Furosemide 10 Mg/Ml 4 Ml Vial IV Q12H [facility] Mexiletine HCl 200 mg 06/23/22 19:00 06/24/22 06:26 Mexiletine 200 Mg Cap PO 200 mg TID@0700,1300,1900 EVANS Administration Naloxone HCl 0.2 mg 06/23/22 17:00 Naloxone 0.4 Mg/Ml 1 Ml Vial IV Q2M PRN Opioid Reversal Ondansetron HCl 4 mg 06/23/22 17:00 Ondansetron 4 Mg/2 Ml Vial IVP Q8HR PRN Nausea And Vomiting Tamsulosin HCl 0.4 mg 06/24/22 09:00 06/24/22 08:46 Tamsulosin 0.4 Mg Cap.Er.24h PO 0.4 mg DAILY EVANS Administration Intake and Output 06/23/22 06/24/22 06/24/22 22:59 06:59 14:59 Other: Voiding Method External Catheter External Catheter External Catheter # Voids 1 # Bowel Movements 1 Weight 111.13 kg 108.5 kg 06/23/22 15:15 06/23/22 15:15
--- NOTE | 2022-06-24 13:49 | US ---
EXAMINATION TYPE: US kidneys/renal and bladder DATE OF EXAM: 06/24/2022 COMPARISON: NONE CLINICAL HISTORY: [email or web address]. EXAM MEASUREMENTS: Right Kidney: 11.1 X 5.2 X 4.8 cm Left Kidney: 10.3 X 5.0 X 4.7 cm Technically difficult, limited study due to patient positions and extreme SOB. Right Kidney:Limited visualization worse on than contralateral side, inferior pole obscured by bowel gas Left Kidney: Limited visualization, 2 cysts largest measuring 1.8 x 1.7 x 2.4cm Bladder: wnl There is no evidence for hydronephrosis at this point in time. No nephrolithiasis is seen. The ur inary bladder is anechoic. Bilateral ureteral jets are seen. IMPRESSION: Limited study. Renal cortical cysts noted.
[2022-06-24 14:10] VITALS: BMI 32.4
--- NOTE | 2022-06-24 14:35 | XR ---
EXAMINATION TYPE: XR chest 1V DATE OF EXAM: 06/24/2022 COMPARISON: Yesterday HISTORY: Short of breath TECHNIQUE: FINDINGS: Heart is enlarged. There is pulmonary interstitial and airspace edema. There is left axilla ry pacemaker. There are chest leads. There are sternal wires. Costophrenic angles are fairly clear. IMPRESSION: There is pulmonary edema consistent with congestive heart failure which is not significan tly different than yesterday.
[2022-06-24 14:54] LABS: Albumin 3.2 g/dL (3.5-5.0); Calcium 8.9 mg/dL (8.4-10.2); Magnesium 2.4 mg/dL (1.6-2.3); Potassium 5.4 mmol/L (3.5-5.1); Total Bilirubin 1.7 mg/dL (0.2-1.3); Total Protein 6.6 g/dL (6.3-8.2)
[2022-06-24 15:07] LABS: Anisocytosis Slight; Basophils % (A) 0 %; Eosinophils % (A) 0 %; HCT 33.9 % (39.0-53.0); Hypochromasia Moderate; Lymphocytes # (A) 0.7 k/uL (1.0-4.8); Lymphocytes % (A) 7 %; MCH 33.8 pg (25.0-35.0); MCHC 32.3 g/dL (31.0-37.0); MCV 104.7 fL (80.0-100.0); Macrocytosis Moderate; Mean Platelet Volume 10.1; Monocytes # (A) 0.6 k/uL (0-1.0); Monocytes % (A) 6 %; Neutrophils # (A) 8.5 k/uL (1.3-7.7); Neutrophils % (A) 85 %; Platelet Count 188 k/uL (150-450); Poikilocytosis Slight; RBC 3.24 m/uL (4.30-5.90); WBC 10.1 k/uL (3.8-10.6)
[2022-06-24] MEDS: IPRATROPIUM-ALBUTEROL 3 ML NEB INHALATION PRN ×2 (15:38→20:02)
[2022-06-24] MEDS: MORPHINE SULFATE 2 MG/ML SYRINGE IVP PRN ×3 (16:31→23:43)
--- NOTE | 2022-06-24 17:06 | CA ---
Transthoracic Echo Report Name: Alvarez Dodge Age: 66 Gender: M : 1955 Exam Date: 06/24/2022 12:40 Exam Location: [facility] Ht (in): 72 Wt (lb): 239 Ordering Physician: Vern Lei MD Attending/Referring Phys: Events Specialist Jade Villareal RDCS Procedure CPT: Indications: Heart failure Cardiac Hx: Technical Quality: Good Contrast 1: Total Dose (mL): Contrast 2: Total Dose (mL): MEASUREMENTS (Male / Female) Normal Values 2D ECHO LV Diastolic Diameter PLAX 7.4 cm 4.2 - 5.9 / 3.9 - 5.3 cm LV Systolic Diameter PLAX 6.1 cm IVS Diastolic Thickness 1.3 cm 0.6 - 1.0 / 0.6 - 0.9 cm LVPW Diastolic Thickness 1.2 cm 0.6 - 1.0 / 0.6 - 0.9 cm LV Relative Wall Thickness 0.3 RV Internal Dim ED PLAX 2.9 cm LA Systolic Diameter LX 6.2 cm 3.0 - 4.0 / 2.7 - 3.8 cm LA Volume 262.9 cm??? 18 - 58 / 22 - 52 cm??? M-MODE Aortic Root Diameter MM 3.2 cm MV E Point Septal Separation 2.1 cm AV Cusp Separation MM 2.2 cm DOPPLER AV Peak Velocity 146.9 cm/s AV Peak Gradient 8.6 mmHg AI Peak Velocity 378.9 cm/s AI Peak Gradient 57.4 mmHg AI Pressure Half Time 342.3 ms MV Peak Velocity 269.7 cm/s MV Peak Gradient 29.1 mmHg MV Mean Velocity 117.0 cm/s MV Mean Gradient 7.6 mmHg MV Velocity Time Integral 35.1 cm MV Area PHT 3.2 cm??? MV Deceleration Time 165.6 ms TR Peak Velocity 355.6 cm/s TR Peak Gradient 50.6 mmHg Right Ventricular Systolic Press 65.6 mmHg FINDINGS Left Ventricle Left ventricular ejection fraction is estimated at 30-35 %. Mild left ventricular hypertrophy. Severely increased left ventricular diastolic diameter. Anterior and anteroseptal akinesis. Dilated left ventricle Right Ventricle Normal right ventricular size and function. Severe pulmonary hypertension. A wire was noted in the right ventricle Right Atrium Normal right atrial size. Left Atrium Severely increased left atrial diameter. Severely increased left atrial volume. Severely increased left atrial area. No evidence for an atrial septal defect. Mitral Valve [id number] mitral regurgitation. Mitral annulus calcification Aortic Valve Trileaflet aortic valve. Mild aortic regurgitation. Tricuspid Valve Severe tricuspid regurgitation.structurally normal tricuspid valve. Pulmonic Valve Pulmonic valve not well visualized. Pericardium Normal pericardium. No pericardial effusion. Aorta Normal size aortic root and proximal ascending aorta. CONCLUSIONS 1. Severely impaired left ventricle systolic function with evidence of ischemic cardiomyopathy and dilated left ventricle 2. Moderate to severe mitral with severe tricuspid regurgitation 3. Severe pulmonary hypertension 4. Mild aortic regurgitation 5. A wire is noted in the right ventricle Previewed by: Dr. Helen Hines MD (Electronically Signed) Final Date: 24 June 2022 17:06
[2022-06-24] MEDS: FUROSEMIDE 10 MG/ML 4 ML VIAL IV SCH (17:27)
[2022-06-24] MEDS: ATORVASTATIN 40 MG TAB PO SCH (20:45)
[2022-06-25] MEDS ORDERED: MORPHINE SULFATE 2 MG/ML SYRINGE IVP STA (00:31)
[2022-06-25] MEDS: MORPHINE SULFATE 2 MG/ML SYRINGE IVP PRN ×2 (05:32→11:00)
[2022-06-25] MEDS: FUROSEMIDE 10 MG/ML 4 ML VIAL IV SCH (05:32)
[2022-06-25] MEDS: IPRATROPIUM-ALBUTEROL 3 ML NEB INHALATION SCH ×2 (06:06→12:32)
[2022-06-25] MEDS: APIXABAN 5 MG TAB PO SCH (08:30)
[2022-06-25] MEDS: carvediloL 6.25 MG TAB PO SCH (08:30)
[2022-06-25] MEDS: MEXILETINE 200 MG CAP PO SCH (08:30)
[2022-06-25] MEDS ORDERED: ALPRAZolam 0.25 MG TAB PO PRN (08:43)
[2022-06-25 08:44] LABS: Anisocytosis Slight; Basophils % (A) 0 %; Eosinophils # (A) 0.1 k/uL (0-0.7); Eosinophils % (A) 1 %; HCT 35.9 % (39.0-53.0); HGB 11.4 gm/dL (13.0-17.5); Hypochromasia Slight; Lymphocytes # (A) 0.7 k/uL (1.0-4.8); Lymphocytes % (A) 7 %; MCHC 31.7 g/dL (31.0-37.0); MCV 104.2 fL (80.0-100.0); Macrocytosis Moderate; Mean Platelet Volume 10.3; Monocytes # (A) 0.7 k/uL (0-1.0); Monocytes % (A) 6 %; Neutrophils # (A) 9.5 k/uL (1.3-7.7); Neutrophils % (A) 85 %; Platelet Count 227 k/uL (150-450); Poikilocytosis Slight; RBC 3.44 m/uL (4.30-5.90); RDW 16.8 % (11.5-15.5); WBC 11.1 k/uL (3.8-10.6)
--- NOTE | 2022-06-25 09:35 | XR ---
EXAMINATION TYPE: XR chest 1V portable DATE OF EXAM: 06/25/2022 HISTORY: Shortness of breath. COMPARISON: 06/24/2022 TECHNIQUE: Single view of the chest is submitted. FINDINGS: Demonstrated are scattered senescent parenchymal change. Stable airspace disease throughout both lung yates may reflect pulmonary edema versus underlying pne umonia. Correlate clinically. Stable cardiomegaly. Hilar and mediastinal structures are within normal limits. Degenerative changes are seen of the dorsal spine. IMPRESSION: 1. Stable airspace disease throughout both lung yates may reflect pulmonary edema versus underlying pneumonia. Correlate clinically.
--- NOTE | 2022-06-25 09:52 | P.PN ---
Subjective Patient is seen in follow-up for acute kidney injury. Creatinine 2.24 yesterday. On IV Lasix. Nonoliguric. Patient is quite lethargic. Family p resent at bedside. Considering hospice. Vital signs are stable. General: Awake. HEENT: Head exam is unremarkable. Wearing O2 mask. LUNGS: Breath sounds decreased. HEART: Tachycardic. ABDOMEN: Soft, no distention. EXTREMITITES: 1+ edema. Objective - Vital Signs Vital signs: Vital Signs Temp 97.7 F 06/24/22 23:42 Pulse 104 H 06/25/22 06:06 Resp 38 H 06/25/22 04:00 BP 114/74 06/25/22 05:33 Pulse Ox 94 L 06/25/22 05:33 FiO2 Intake & Output 06/24/22 06/25/22 06/25/22 18:59 06:59 18:59 Intake Total 236 Output Total 600 800 300 Balance -364 -800 -300 Weight 108.5 kg 105.5 kg Intake: Oral 236 Output: Urine 600 800 300 Other: Voiding Method External Catheter External Catheter - Labs CBC & Chem 7: 06/25/22 07:20 06/24/22 14:11 Labs: Abnormal Lab Results - Last 24 Hours (Table) 06/24/22 06/24/22 06/25/22 Range/Units 14:11 14:11 07:20 WBC 11.1 H (3.8-10.6) k/uL RBC 3.24 L 3.44 L (4.30-5.90) m/uL Hgb 11.0 L 11.4 L (13.0-17.5) gm/dL Hct 33.9 L 35.9 L (39.0-53.0) % MCV 104.7 H 104.2 H (80.0-100.0) fL RDW 17.0 H 16.8 H (11.5-15.5) % Neutrophils # 8.5 H 9.5 H (1.3-7.7) k/uL Lymphocytes # 0.7 L 0.7 L (1.0-4.8) k/uL Potassium 5.4 H (3.5-5.1) mmol/L Carbon Dioxide 17 L (22-30) mmol/L BUN 73 H (9-20) mg/dL Creatinine 2.24 H (0.66-1.25) mg/dL Glucose 170 H (74-99) mg/dL Magnesium 2.4 H (1.6-2.3) mg/dL Total Bilirubin 1.7 H (0.2-1.3) mg/dL AST 294 H (17-59) U/L ALT 63 H (4-49) U/L Alkaline Phosphatase 144 H (38-126) U/L Albumin 3.2 L (3.5-5.0) g/dL Assessment and Plan Plan: Assessment: 1. Acute kidney injury secondary to ATN secondary to cardiorenal syndrome. Creatinine 1.99 on admission - 2.24 yesterday. No hydronephrosis noted on kidney ultrasound. Unknown baseline renal function. UA benign. 2. Volume overload. 3 Acute on chronic systolic CHF with ejection fraction of 30-35% and moderate to severe mitral regurgitation, severe tricuspid regurgitation and pulmonary hypertension. 4. Metabolic acidosis secondary to acute kidney injury. 5. Acute hypoxic respiratory failure. Plan: Maintain IV Lasix. Strict I's and O's. Avoid nephrotoxins. Continue to monitor renal function and urine output. Morning labs pending. Meeting with hospice later today.
[2022-06-25] MEDS ORDERED: SODIUM BICARBONATE TAB 650 MG TAB PO SCH (10:00)
[2022-06-25 10:26] LABS: Calcium 8.5 mg/dL (8.4-10.2); Magnesium 2.3 mg/dL (1.6-2.3); Potassium 4.8 mmol/L (3.5-5.1)
--- NOTE | 2022-06-25 10:41 | P.PN ---
Subjective Progress Note Date: 06/25/22 I was called by the nurse because this morning patient's respirations were in the 30s and heart rate was 125 and he was desatting 82% on 5 L. When I arrived patient was placed on a nonrebreather mask and was doing much better. Chest x- ray was done this morning that shows stable findings. again tells me that she would like her to be comfortable. I told nurse to page hospice. Objective - Vital Signs Vital signs: Vital Signs Temp 97.7 F 06/24/22 23:42 Pulse 104 H 06/25/22 06:06 Resp 38 H 06/25/22 04:00 BP 114/74 06/25/22 05:33 Pulse Ox 94 L 06/25/22 05:33 FiO2 Intake & Output 06/24/22 06/25/22 06/25/22 18:59 06:59 18:59 Intake Total 236 Output Total 600 800 300 Balance -364 -800 -300 Weight 108.5 kg 105.5 kg Intake: Oral 236 Output: Urine 600 800 300 Other: Voiding Method External Catheter External Catheter - Exam General examination - Alert and Oriented 3 in moderate respiratory distress Heart - + S1S2 no murmurs Lungs - bilateral lower lung crackles Abdomen soft NT ND +ve BS Extremities - +2 pitting edema bilateral lower extremities 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[employer] - residual right-sided weakness, and aphasia Psych - appears lethargic and somnolent - Labs CBC & Chem 7: 06/25/22 07:20 06/25/22 09:51 Labs: Abnormal Lab Results - Last 24 Hours (Table) 06/24/22 06/24/22 06/25/22 Range/Units 14:11 14:11 07:20 WBC 11.1 H (3.8-10.6) k/uL RBC 3.24 L 3.44 L (4.30-5.90) m/uL Hgb 11.0 L 11.4 L (13.0-17.5) gm/dL Hct 33.9 L 35.9 L (39.0-53.0) % MCV 104.7 H 104.2 H (80.0-100.0) fL RDW 17.0 H 16.8 H (11.5-15.5) % Neutrophils # 8.5 H 9.5 H (1.3-7.7) k/uL Lymphocytes # 0.7 L 0.7 L (1.0-4.8) k/uL Potassium 5.4 H (3.5-5.1) mmol/L Carbon Dioxide 17 L (22-30) mmol/L BUN 73 H (9-20) mg/dL Creatinine 2.24 H (0.66-1.25) mg/dL Glucose 170 H (74-99) mg/dL Magnesium 2.4 H (1.6-2.3) mg/dL Total Bilirubin 1.7 H (0.2-1.3) mg/dL AST 294 H (17-59) U/L ALT 63 H (4-49) U/L Alkaline Phosphatase 144 H (38-126) U/L Albumin 3.2 L (3.5-5.0) g/dL 06/25/22 Range/Units 09:51 WBC (3.8-10.6) k/uL RBC (4.30-5.90) m/uL Hgb (13.0-17.5) gm/dL Hct (39.0-53.0) % MCV (80.0-100.0) fL RDW (11.5-15.5) % Neutrophils # (1.3-7.7) k/uL Lymphocytes # (1.0-4.8) k/uL Potassium (3.5-5.1) mmol/L Carbon Dioxide (22-30) mmol/L BUN 79 H (9-20) mg/dL Creatinine 2.30 H (0.66-1.25) mg/dL Glucose 132 H (74-99) mg/dL Magnesium (1.6-2.3) mg/dL Total Bilirubin (0.2-1.3) mg/dL AST (17-59) U/L ALT (4-49) U/L Alkaline Phosphatase (38-126) U/L Albumin (3.5-5.0) g/dL Assessment and Plan Assessment: Acute on chronic systolic heart failure status post ICD Acute hypoxic respiratory failure IV Lasix increased to 40 mg twice a day Consult cardiology and nephrology Patient had a recent echocardiogram done on May 2022 at [facility] that showed an EF of 40% Echocardiogram shows EF of 30-35% and moderate to severe mitral regurgitation and severe tricuspid regurgitation and severe pulmonary hypertension 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 Patient now on nonrebreather mask Acute kidney injury likely on CK D I reviewed records from [facility]. Patient is an creatinine is around 2.0. On admission he was at his baseline Nephrology on board Monitor creatinine closely while on IV diuretics Renal ultrasound negative for hydronephrosis Patient's renal function is worsening Mild hyperkalemia likely due to renal failure Continue with diuretics Resolved Elevated lactic acid likely due to hypoxia Patient has no fever or leukocytosis so unlikely due to sepsis Elevated troponin secondary to renal failure and heart failure Patient denies any chest pains unlikely ACS Trend troponins Elevated LFTs likely due to hepatic congestion Continue to trend CMP Right upper quadrant ultrasound was limited Recurrent DVT with IVC filter Elevated d-dimer likely due to recent acute DVT Resume Eliquis A. fib with RVR Resume Eliquis and mexiletine BPH Resume tamsulosin Hyperlipidemia Resume statin Coronary artery disease status post CABG Resume aspirin and statin History of gout Resume allopurinol History of multiple strokes Resume aspirin and statin DNR/DNI DVT prophylaxis: eliquis Patient's prognosis is guarded. I told nurse to page hospice nurse. Family interested in comfort care
[2022-06-25] MEDS: BALSALAZIDE DISODIUM 750 MG CAPSULE PO SCH ×2 (11:00→12:38)
[2022-06-25] MEDS: TAMSULOSIN 0.4 MG CAP.ER.24H PO SCH (11:00)
[2022-06-25] MEDS: allopurinoL 100 MG TAB PO SCH (12:37)
[2022-06-25] MEDS: ASPIRIN 81 MG PO SCH (12:38)
[2022-06-25 13:11] VITALS: TEMP 98.4
[2022-06-25 13:14] VITALS: RESP 30
[2022-06-25 13:17] VITALS: BP 101/71; PULSE 91
--- NOTE | 2022-06-26 12:09 | P.DS ---
Providers Date of admission: 06/23/22 17:11 Expected date of discharge: 06/26/22 Attending physician: Vern Lei MD Consults: 06/24/22 09:19 Consult Physician Urgent Consulting Provider: Ace Borges Consult Reason/Comments: heart failure Do you want consulting provider notified?: Yes Consult Physician Urgent Consulting Provider: Meghan Knapp Consult Reason/Comments: ANAYELI Do you want consulting provider notified?: Yes 06/24/22 16:02 Consult to Palliative Care Routine Consulting Provider: Chacha Holt Consult Reason/Comments: goals of care Do you want consulting provider notified?: Yes Primary care physician: William Cleveland DO Hospital Course: Discharge Diagnosis: Acute on chronic systolic heart failure status post ICD Acute hypoxic respiratory failure Acute kidney injury on CK D stage IV Mild hyperkalemia likely due to renal failure Elevated lactic acid likely due to hypoxia Elevated troponin secondary to renal failure and heart failure Elevated LFTs likely due to hepatic congestion Recurrent DVT with IVC filter A. fib with RVR BPH Hyperlipidemia Coronary artery disease status post CABG History of gout History of multiple strokes Hospital Course: Patient is a 66-year-old male with a past medical history of multiple DVTs who has failed multiple anticoagulation status post IVC filter, recurrent lower extremity cellulitis, chronic systolic heart failure, multiple strokes with residual right-sided weakness, history of hemorrhagic stroke, coronary artery disease status post CABG, atrial fibrillation, hyperlipidemia, CKD stage IV who was admitted for shortness of breath. Patient is aphasic from previous stroke so history obtained from his . states that patient 3 days ago his breathing has been worsening. Today at the [facility] his pulse ox was down to the 70s. In the ED patient's oxygen was 80% on room air. Patient's potassium was 5.4. Creatinine was 1.99. Lactic acid 3.0. BNP greater than 30,000. He had elevated LFTs. Chest x-ray showed cardiomegaly and vascular congestion. Patient was started on IV diuretics. Cardiology and pulmonology following the patient. Patient had an echocardiogram done that showed an EF of 30-35% and moderate to severe mitral regurgitation and severe tricuspid regurgitation and severe pulmonary hypertension. During hospital course patient renal function was worsening. Patient's breathing was also worsening. Family then decided to make him comfort care. Patient's seen by hospice nurse and was admitted to the inpatient hospice service. Patient seen and examined at bedside.[] Please see my progress note for physical exam A total of [40] minutes of time were spent preparing this complex discharge summary . Patient Condition at Discharge: Poor Plan - Discharge Summary Discharge Rx Participant: No New Discharge Prescriptions: No Action allopurinoL [Zyloprim] 100 mg PO DAILY Aspirin EC [Ecotrin Low Dose] 81 mg PO DAILY Balsalazide Disodium 750 mg PO TID@0700,1300,1900 Furosemide [Lasix] 40 mg PO DAILY traMADol HCL 50 mg PO BID@0700,1900 traZODone HCL [Desyrel] 50 mg PO HS Acetaminophen Tab [Tylenol] 650 mg PO Q6H PRN PRN Reason: Pain Apixaban [Eliquis] 2.5 mg PO BID carvediloL [Coreg] 6.25 mg PO BID Mexiletine [Mexitil] 200 mg PO TID@0700,1300,1900 Potassium Chloride ER [K-Dur 20] 20 meq PO DAILY Tamsulosin [Flomax] 0.4 mg PO DAILY Discharge Medication List Acetaminophen Tab [Tylenol] 650 mg PO Q6H PRN 06/23/22 [History] Apixaban [Eliquis] 2.5 mg PO BID 06/23/22 [History] Aspirin EC [Ecotrin Low Dose] 81 mg PO DAILY 06/23/22 [History] Balsalazide Disodium 750 mg PO TID@0700,1300,1900 06/23/22 [History] Furosemide [Lasix] 40 mg PO DAILY 06/23/22 [History] Mexiletine [Mexitil] 200 mg PO TID@0700,1300,1900 06/23/22 [History] Potassium Chloride ER [K-Dur 20] 20 meq PO DAILY 06/23/22 [History] Tamsulosin [Flomax] 0.4 mg PO DAILY 06/23/22 [History] allopurinoL [Zyloprim] 100 mg PO DAILY 06/23/22 [History] carvediloL [Coreg] 6.25 mg PO BID 06/23/22 [History] traMADol HCL 50 mg PO BID@0700,1900 06/23/22 [History] traZODone HCL [Desyrel] 50 mg PO HS 06/23/22 [History] Follow up Appointment(s)/Referral(s): William Cleveland DO [Primary Care Provider] - 1-2 days Discharge Disposition: DC/TRNS IP HOSP W/[facility] IP READ
== END 2022-06-25 14:04 | disposition hospice, inpatient (51) | DRG 291 ==
LOC: EC 14:38 → 3SCARD 17:11
PROVIDERS: ADMIT Internal Medicine; ATTEND Internal Medicine
DX: I13.0 Hypertensive heart and chronic kidney disease with heart failure and stage 1 through stage 4 chronic kidney disease, or unspecified chronic kidney disease (principal); I50.23 Acute on chronic systolic (congestive) heart failure; J96.01 Acute respiratory failure with hypoxia; N17.0 Acute kidney failure with tubular necrosis; E87.2 Acidosis; I48.19 Other persistent atrial fibrillation; I69.351 Hemiplegia and hemiparesis following cerebral infarction affecting right dominant side; N18.4 Chronic kidney disease, stage 4 (severe); E78.5 Hyperlipidemia, unspecified; E87.5 Hyperkalemia; F17.210 Nicotine dependence, cigarettes, uncomplicated; I08.1 Rheumatic disorders of both mitral and tricuspid valves; Z51.5 Encounter for palliative care; Z66 Do not resuscitate; I25.10 Atherosclerotic heart disease of native coronary artery without angina pectoris; I25.2 Old myocardial infarction; I27.20 Pulmonary hypertension, unspecified; I69.320 Aphasia following cerebral infarction; M10.9 Gout, unspecified; K76.1 Chronic passive congestion of liver; Z95.1 Presence of aortocoronary bypass graft; Z95.828 Presence of other vascular implants and grafts; K80.20 Calculus of gallbladder without cholecystitis without obstruction; Z79.01 Long term (current) use of anticoagulants; Z20.822 Contact with and (suspected) exposure to COVID-19; R77.8 Other specified abnormalities of plasma proteins; Z86.19 Personal history of other infectious and parasitic diseases; Z86.718 Personal history of other venous thrombosis and embolism; N40.0 Benign prostatic hyperplasia without lower urinary tract symptoms; Z79.82 Long term (current) use of aspirin; Z79.899 Other long term (current) drug therapy; Z95.810 Presence of automatic (implantable) cardiac defibrillator; Z28.310 Unvaccinated for COVID-19; Z88.8 Allergy status to other drugs, medicaments and biological substances; Z71.3 Dietary counseling and surveillance
CPT/HCPCS: 36415; 71045; 71046; 76705; 76770; 80048; 80053; 81003; 83605; 83735; 83880; 84484; 85025; 85379; 85610; 85730; 87635; 93005; 93306; 94640; 94760; 96374; 99285

== ENCOUNTER 2022-06-25 13:09 | Inpatient (IN) | payer MEDICAID, MEDICARE ==
[2022-06-25] MEDS ORDERED: LORazepam 2 MG/ML INJ IV PRN (13:25)
[2022-06-25] MEDS ORDERED: SCOPOLAMINE 1 MG/72 HR PATCH TRANSDERM SCH (13:30)
[2022-06-25] MEDS: MORPHINE SULFATE 2 MG/ML SYRINGE IVP PRN ×2 (16:09→19:47)
[2022-06-25] MEDS: LORazepam 1 MG/0.5 ML VIAL IV PRN ×2 (19:01→21:49)
[2022-06-25 21:24] VITALS: RESP 30
[2022-06-25] MEDS ORDERED: ATROPINE OPHTH SOLN 1% 5ML BTL SUBLINGUAL PRN (22:06)
[2022-06-25] MEDS ORDERED: MORPHINE SULFATE (100 MG/2 ML) 100 MG in SODIUM CHLORIDE 0.9% 100 ML IV SCH (22:15)
[2022-06-26] MEDS: LORazepam 1 MG/0.5 ML VIAL IV PRN (00:35)
--- NOTE | 2022-06-26 11:58 | P.HPIM ---
History of Present Illness H&P Date: 06/26/22 Chief Complaint: Shortness of breath Patient is a 66-year-old male with a past medical history of multiple comorbidities who was admitted for shortness of breath. His condition was declining. Family requested to make him comfort care. Patient was seen by hospice and was admitted to inpatient hospice. Patient started on IV morphine when necessary and IV Ativan when necessary and scopolamine patch. Patient peacefully on 06/26/2022 at 9:30 AM. Cause of Acute hypoxic respiratory failure secondary to acute on chronic systolic heart failure Time of onset 2 days Past Medical History Past Medical History: Heart Failure, Hyperlipidemia, Hypertension, Liver Disease, Prostate Disorder, Renal Disease Additional Past Medical History / Comment(s): CHF, stroke History of Any Multi-Drug Resistant Organisms: None Reported Additional Past Surgical History / Comment(s): Quadrupal bypass Past Anesthesia/Blood Transfusion Reactions: No Reported Reaction Past Psychological History: Unable to Obtain Smoking Status: Unknown if ever smoked Past Alcohol Use History: Unable to Obtain Past Drug Use History: Unable to Obtain Medications and Allergies Home Medications Medication Instructions Recorded Confirmed Type Acetaminophen Tab [Tylenol] 650 mg PO Q6H PRN 06/23/22 06/25/22 History Apixaban [Eliquis] 2.5 mg PO BID 06/23/22 06/25/22 History Aspirin EC [Ecotrin Low Dose] 81 mg PO DAILY 06/23/22 06/25/22 History Balsalazide Disodium 750 mg PO TID@0700,1300,1900 06/23/22 06/25/22 History Furosemide [Lasix] 40 mg PO DAILY 06/23/22 06/25/22 History Mexiletine [Mexitil] 200 mg PO TID@0700,1300,1900 06/23/22 06/25/22 History Potassium Chloride ER [K-Dur 20] 20 meq PO DAILY 06/23/22 06/25/22 History Tamsulosin [Flomax] 0.4 mg PO DAILY 06/23/22 06/25/22 History allopurinoL [Zyloprim] 100 mg PO DAILY 06/23/22 06/25/22 History carvediloL [Coreg] 6.25 mg PO BID 06/23/22 06/25/22 History traMADol HCL 50 mg PO BID@0700,1900 06/23/22 06/25/22 History traZODone HCL [Desyrel] 50 mg PO HS 06/23/22 06/25/22 History Allergies Allergy/AdvReac Type Severity Reaction Status Date / Time lisinopril [From Zestril] Allergy Cough Verified 06/23/22 17:29 niacin Allergy Swelling Verified 06/23/22 17:29 [From Niaspan Extended-Release] Physical Exam Osteopathic Statement: *. No significant issues noted on an osteopathic structural exam other than those noted in the History and Physical/Consult. Vitals: Vital Signs Resp 06/25/22 20:00 30 H Intake and Output 06/25/22 06/26/22 06/26/22 22:59 06:59 14:59 Intake Total 4.08 Output Total 800 Balance -795.92 Intake: Intake, IV Titration 4.08 Amount Morphine Sulfate (100 mg/ 4.08 2 ml) 100 mg In Sodium Chloride 0.9% 100 ml @ 4 MG/HR 4.08 mls/hr IV . Q24H [facility] Rx#:[id number] Output: Urine 800 Other: Voiding Method External Catheter Patient was not seen today because he had . Assessment and Plan Assessment: Hospice care. Patient today comfortably.
--- NOTE | 2022-06-26 12:00 | P.DS ---
Providers Date of admission: 06/25/22 15:45 Expected date of discharge: 06/26/22 Attending physician: Vern Lei MD Primary care physician: William Cleveland DO Hospital Course: Discharge Diagnosis: Hospice care Hospital Course: Patient is admitted to inpatient hospice. Please see previous admission Hospital summary for hospital course. Please see H&P for cause of and time of A total of [2] minutes of time were spent preparing this complex discharge summary . Plan - Discharge Summary New Discharge Prescriptions: No Action allopurinoL [Zyloprim] 100 mg PO DAILY Aspirin EC [Ecotrin Low Dose] 81 mg PO DAILY Balsalazide Disodium 750 mg PO TID@0700,1300,1900 Furosemide [Lasix] 40 mg PO DAILY traMADol HCL 50 mg PO BID@0700,1900 traZODone HCL [Desyrel] 50 mg PO HS Acetaminophen Tab [Tylenol] 650 mg PO Q6H PRN PRN Reason: Pain Apixaban [Eliquis] 2.5 mg PO BID carvediloL [Coreg] 6.25 mg PO BID Mexiletine [Mexitil] 200 mg PO TID@0700,1300,1900 Potassium Chloride ER [K-Dur 20] 20 meq PO DAILY Tamsulosin [Flomax] 0.4 mg PO DAILY Discharge Medication List Acetaminophen Tab [Tylenol] 650 mg PO Q6H PRN 06/23/22 [History] Apixaban [Eliquis] 2.5 mg PO BID 06/23/22 [History] Aspirin EC [Ecotrin Low Dose] 81 mg PO DAILY 06/23/22 [History] Balsalazide Disodium 750 mg PO TID@0700,1300,1900 06/23/22 [History] Furosemide [Lasix] 40 mg PO DAILY 06/23/22 [History] Mexiletine [Mexitil] 200 mg PO TID@0700,1300,1900 06/23/22 [History] Potassium Chloride ER [K-Dur 20] 20 meq PO DAILY 06/23/22 [History] Tamsulosin [Flomax] 0.4 mg PO DAILY 06/23/22 [History] allopurinoL [Zyloprim] 100 mg PO DAILY 06/23/22 [History] carvediloL [Coreg] 6.25 mg PO BID 06/23/22 [History] traMADol HCL 50 mg PO BID@0700,1900 06/23/22 [History] traZODone HCL [Desyrel] 50 mg PO HS 06/23/22 [History] Discharge Disposition: - Preliminary Cause of Preliminary Cause of : Acute hypoxic respiratory failure
== END 2022-06-26 11:11 | disposition expired | DRG 951 ==
LOC: 3SCARD 15:45
PROVIDERS: ADMIT Internal Medicine; ATTEND Internal Medicine
DX: Z51.5 Encounter for palliative care (principal); J96.01 Acute respiratory failure with hypoxia; I50.23 Acute on chronic systolic (congestive) heart failure; E78.5 Hyperlipidemia, unspecified; I11.0 Hypertensive heart disease with heart failure; N28.89 Other specified disorders of kidney and ureter; K76.9 Liver disease, unspecified; N42.9 Disorder of prostate, unspecified; Z79.01 Long term (current) use of anticoagulants; Z79.82 Long term (current) use of aspirin; Z79.899 Other long term (current) drug therapy; Z86.73 Personal history of transient ischemic attack (TIA), and cerebral infarction without residual deficits; Z88.8 Allergy status to other drugs, medicaments and biological substances

== ENCOUNTER → 2022-06-25 | Outpatient (CLI) | payer MEDICARE, MEDICAID | END | disposition home or self-care (01) | LOC: U 15:16 | PROVIDERS: ATTEND Internal Medicine | DX: Z53.9 Procedure and treatment not carried out, unspecified reason (principal) ==